=== PATIENT | male | born 1995 | race Caucasian/White ===

== ENCOUNTER 2018-05-06 12:22 | Emergency (ER) | payer OTHER ==
[~2018-05-06] VITALS: Ht 177.8 cm; Wt 72.6 kg
[~2018-05-06 12:22] MED LIST: ALBU90OI INH; CEPH500 PO; CLIN300 PO; CYCL10 PO; DOXY100 PO; HYDACE5 PO; IBUP800 PO; Naprosyn500 MG PO; Norco 5-325 Ta1 EACH PO; PRED20 PO; RXTRAM50 PO; TRAM50 PO
== END 2018-05-06 13:16 | disposition home or self-care (01) ==
LOC: ER 12:22
DX: M25.521 Pain in right elbow (principal); F17.210 Nicotine dependence, cigarettes, uncomplicated
CPT/HCPCS: 73080; 73110; 99283-25

== ENCOUNTER 2018-06-12 14:56 | Emergency (ER) | payer OTHER | END 2018-06-12 15:23 | disposition left against medical advice (07) | LOC: ER 14:56 | DX: Z53.21 Procedure and treatment not carried out due to patient leaving prior to being seen by health care provider (principal) ==

== ENCOUNTER 2020-08-26 08:48 | Emergency (ER) | payer OTHER ==
[~2020-08-26] VITALS: Ht 172.7 cm; Wt 74.8 kg
== END 2020-08-26 10:57 | disposition home or self-care (01) ==
LOC: ER 08:48
DX: R51.9 Headache, unspecified (principal); F17.210 Nicotine dependence, cigarettes, uncomplicated
CPT/HCPCS: 96372-59; 99284-25; A9270; J1200; J1885

== ENCOUNTER 2022-10-31 08:52 | Emergency (ER) | payer OTHER ==
[~2022-10-31] VITALS: Ht 175.3 cm; Wt 90.3 kg
[2022-10-31 09:53] VITALS: BP 137/84
[2022-10-31] MEDS ORDERED: Veetids 500500 MG PO (10:24)
== END 2022-10-31 10:32 | disposition home or self-care (01) ==
LOC: ER 08:52
DX: J02.9 Acute pharyngitis, unspecified (principal); F17.210 Nicotine dependence, cigarettes, uncomplicated
CPT/HCPCS: 87081; 87430; 99283; J1100

== ENCOUNTER 2024-07-12 08:46 | Emergency (ER) | payer BC ==
[~2024-07-12] VITALS: Ht 175.3 cm; Wt 99.8 kg
[~2024-07-12 08:46] MED LIST changes: +Veetids 500500 MG PO
[2024-07-12 09:32] VITALS: BP 134/81
== END 2024-07-12 09:33 | disposition home or self-care (01) ==
LOC: ER 08:46
DX: A08.4 Viral intestinal infection, unspecified (principal); F17.200 Nicotine dependence, unspecified, uncomplicated
CPT/HCPCS: 99283

== ENCOUNTER 2025-01-15 12:11 | Emergency (ER) | payer OTHER ==
[~2025-01-15] VITALS: Ht 175.3 cm; Wt 72.6 kg
[2025-01-15 12:19] VITALS: BP 149/106
== END 2025-01-15 12:40 | disposition home or self-care (01) ==
LOC: ER 12:11
DX: F17.210 Nicotine dependence, cigarettes, uncomplicated (principal); Z76.0 Encounter for issue of repeat prescription; Z53.29 Procedure and treatment not carried out because of patient's decision for other reasons
CPT/HCPCS: 99281; A9270